=== PATIENT | male | born 1990 | race Two or more races ===

== ENCOUNTER 2022-05-10 11:21 | Emergency (ER) | payer OTHER ==
[~2022-05-10] VITALS: Ht 188 cm; Wt 98.4 kg
[2022-05-10] MEDS ORDERED: KETO10TA2 PO (14:41)
[2022-05-10] MEDS ORDERED: NORFLEX100MG PO (14:41)
== END 2022-05-10 14:43 | disposition home or self-care (01) ==
LOC: ER 11:21
DX: R10.9 Unspecified abdominal pain (principal); R07.81 Pleurodynia; I87.8 Other specified disorders of veins

== ENCOUNTER 2022-10-11 11:28 | Emergency (ER) | payer OTHER ==
[~2022-10-11] VITALS: Ht 188 cm; Wt 88.5 kg
[~2022-10-11 11:28] MED LIST: KETO10TA2 PO; NORFLEX100MG PO
== END 2022-10-11 14:26 | disposition home or self-care (01) ==
LOC: ER 11:28
DX: M54.89 Other dorsalgia (principal)